=== PATIENT | female | born 1965 | race Caucasian/White ===

== ENCOUNTER 2021-01-20 07:32 | Outpatient (REF) | payer OTHER, SELFPAY ==
[2021-01-20 08:23] LABS: COVID-19 Test Negative (Negative)
== END 2021-01-20 07:33 | disposition home or self-care (01) ==
LOC: HO.LAB 07:32
PROVIDERS: Visit Provider Internal Medicine
DX: Z20.822 Contact with and (suspected) exposure to COVID-19 (principal)
CPT/HCPCS: 36415; 87635; C9803

== ENCOUNTER 2021-01-21 10:59 | Inpatient (IN) | payer OTHER, SELFPAY ==
[2021-01-21] VITALS (9 sets, daily range): BP systolic 138–174; BP diastolic 60–98; PULSE 78–96; RESP 16–24; TEMP 36.8–37.2; O2SAT 95–99; BMI 28.1
--- NOTE | ~2021-01-21 | CT_ITS ---
EXAMINATION: CT ANGIOGRAM OF THE HEAD CT ANGIOGRAM OF THE NECK CLINICAL INFORMATION: Vasculitis, abnormal MRI. COMPARISON: MRI scans of the brain and cervical spine 01/21/2021 and 01/22/2021. TECHNIQUE: Test bolus series followed by intravenous administration 65 mL of Omnipaque 350. Helical imaging was performed in the axial plane from the mediastinum to the skull vertex. A delayed postcontrast CT scan of the head was obtained. The degree of stenosis is based off NASCET criteria. The data was processed at the biotechnologist workstation for generation of MIP images. Three-dimensional volume rendered reformatted images were also generated at an offline 3-D workstation. This CT examination was performed using dose optimization techniques as appropriate, variously including the following: *Automated exposure control *Adjustment of mA and/or kV according to patient size (this includes techniques or standardized protocols for targeted exams where dose is matched to indication/reason for exam; i.e. extremities or head) *Use of iterative reconstruction technique DLP: 1 5-0 mGy-cm. FINDINGS: CT Head: There is no evidence of acute intracranial hemorrhage or territorial infarction. No abnormal mass-effect or midline shift is seen. Spear to white matter differentiation is well preserved. No extra-axial fluid collections are identified. There is no abnormal enhancement. The ventricles are normal in size. There are a few areas of low-attenuation in the periventricular and subcortical white matter consistent with chronic microvascular ischemic changes. An area of low-attenuation in the anterior left basal ganglia is consistent with a chronic lacunar infarct. There are no acute osseous findings. There is hyperostosis frontalis interna. There are degenerative changes of the right sternoclavicular joint. The mastoid air cells and visualized portions of the paranasal sinuses are well-aerated. CTA Neck: There is a classic configuration of the arch of the aorta. The great vessels of the neck are widely patent. The subclavian arteries appear normal bilaterally. The common carotid arteries have normal caliber. The carotid bifurcations bilaterally appear normal. The internal carotid arteries in the neck bilaterally have uniform and normal caliber. The origins of both vertebral arteries are well seen and appear normal. Both vertebral arteries are widely patent and demonstrate good opacification throughout their cervical course. The left vertebral artery is minimally dominant. Nonvascular: The visualized upper lung yañez are well-aerated. The thyroid gland is normal in size. There is no cervical lymphadenopathy. There is prevertebral soft tissue fullness, but this is better evaluated on the prior MRI scans. There are coarse calcifications along the anterior arch of C1; no acute fractures are demonstrated. CTA Head: In the anterior circulation, the distal internal carotid arteries within the neck appear normal. There are atheromatous calcifications of the cavernous internal carotid arteries, but the vessels are patent bilaterally. The middle and anterior cerebral arteries bilaterally demonstrate normal caliber with no evidence of focal stenosis, aneurysm or vascular malformation. There is normal arborization of the middle cerebral artery branches. The anterior communicating artery is normal. There is no evidence of vasculitis. In the posterior circulation, the left vertebral artery is dominant. The vertebral arteries intradurally have uniform caliber. The basilar artery appears normal. The posterior cerebral arteries have normal caliber. The venous sinuses opacify normally. CT/CT angio head neck IMPRESSION: CT head and neck: 1. There are no acute bleeds or infarcts. There is a low-attenuation in the white matter as described above. 2. There are no masses or areas of abnormal enhancement intracranially. 3. The prevertebral fluid is better demonstrated on prior imaging. CTA neck: 1. No flow limiting stenoses are demonstrated in the neck vascularity. There is no significant atheromatous disease. 2. Intracranially there are no focal stenoses, aneurysms or vascular malformations. There are mild atheromatous calcifications as described above. Vessel calibers appear normal in the anterior and posterior circulations.
--- NOTE | ~2021-01-21 | MR_ITS ---
EXAMINATION: MR CERVICAL SPINE WITHOUT CONTRAST CLINICAL INFORMATION: Assess for vasculitis or demyelination. COMPARISON: MR scan of the brain earlier 01/21/2021. TECHNIQUE: MRI of the cervical spine was obtained using routine sequences without contrast. FINDINGS: VERTEBRAL BODIES AND PARASPINAL SOFT TISSUES: There is a mild retrolisthesis of C5 on C6. There is narrowing of intervertebral disc height at C4-C5 and C5-C6. The vertebral bodies of normal height and contour and no fractures are demonstrated. Overall, marrow signal is homogenous. There is swelling of the prevertebral soft tissues extending from the clivus with edematous signal down to the level of C5-C6. No discrete fluid collection is demonstrated. There is some edematous signal in the bilateral longus coli muscles at the level of C1. The other paravertebral structures appear unremarkable. CERVICOMEDULLARY JUNCTION AND VISUALIZED POSTERIOR FOSSA: The craniocervical and posterior fossa structures are normal. Accounting for artifact, spinal cord signal appears normal. SPINAL LEVELS: C1-C2: There is normal alignment of the lateral masses of C1 and C2. There are small joint effusions at this level. There is no spinal cord compression or central stenosis. C2-C3: The facet joints appear normal bilaterally. Posterior disc contour is normal. There is no spinal cord compression or central stenosis. The neural foramina are patent bilaterally. C3-C4: The facet joints appear normal bilaterally. Posterior disc contour is normal. There is no spinal cord compression or central stenosis. The neural foramina are patent bilaterally. C4-C5: The facet joints appear normal bilaterally. Posterior disc contour is normal. There is no spinal cord compression or central stenosis. The neural foramina are patent bilaterally. C5-C6: There is a broad-based posterior disc protrusion which effaces CSF ventral spinal cord but there is no spinal cord compression or central stenosis. There are uncovertebral osteophytes and there is moderate left foraminal narrowing. C6-C7: There is a small posterior disc protrusion without mass effect on the spinal cord and there is no central stenosis. The neural foramina are patent bilaterally. C7-T1: The facet joints appear normal bilaterally. Posterior disc contour is normal. There is no spinal cord compression or central stenosis. The neural foramina are patent bilaterally. MR/MR cervical spine wo con IMPRESSION: 1. There is soft tissue fullness with edema in the prevertebral soft tissues extending from the clivus down to the level of C5. This could be consistent with inflammatory or infective changes, but no discrete fluid collections are demonstrated. 2. There is mild spondylosis at C5-C6 and C6-C7, without spinal cord compression or central stenosis. There is moderate left foraminal narrowing at C5-C6. Spinal cord signal appears normal. 3. This critical result was discussed with Dr. Ward by telephone on 01/21/2021 at 8:44 PM and it was ascertained that the content and urgency of the report was understood at the time of direct communication.
--- NOTE | ~2021-01-21 | MR_ITS ---
MR BRAIN WITHOUT AND WITH CONTRAST MR CERVICAL SPINE WITHOUT AND WITH CONTRAST CLINICAL INDICATION Assess for vasculitis versus meningitis. COMPARISON: Precontrast MRI scans of the brain and cervical spine 01/21/2021. TECHNIQUE: Postcontrast MRI scans of the brain and cervical spine were obtained following the intravenous administration of 8.5 mL of Gadavist. FINDINGS: MRI Brain: No mass effect or midline shift is seen. The ventricles are normal in size. There is an area of low signal in the left basal ganglia anteriorly consistent with a lacunar infarct. There is no abnormal parenchymal, leptomeningeal or pachymeningeal enhancement. MRI Cervical Spine: There is straightening of the cervical lordosis. Intervertebral disc heights are maintained. The vertebral bodies have normal height and contour and no fractures are demonstrated. Marrow signal appears uniform, and no abnormal osseous enhancement is demonstrated. The cervical spinal cord has normal signal and there is no abnormal intramedullary enhancement. No epidural fluid collections are demonstrated. There is soft tissue fullness with enhancement extending from the clivus down to the level of C5-C6 which demonstrates enhancement, consistent with an evolving phlegmon. There is a focal small peripherally enhancing area in the prevertebral soft tissues on the left at the level of the body of C2 which measures 0.6 x 0.8 x 0.9 cm in oblique AP, transverse and craniocaudal dimensions, which appears consistent with a small evolving abscess. There is enhancement of the longus colli muscles bilaterally. There appears to be enhancement of the previously demonstrated fluid/effusions at C1-C2 bilaterally. MR/MR cervical spine w con IMPRESSION: 1. There are no intracranial masses. There is no abnormal intracranial leptomeningeal, parenchymal pachymeningeal enhancement. There is no enhancement of the cervical spinal cord. There are no epidural fluid collections. 2. There is prevertebral soft tissue fullness extending from the clivus down to the level of C5-C6. This demonstrates diffuse enhancement, and is consistent with a phlegmon in the region. There is enhancement of the bilateral longus colli muscles, and there is a focal 0.9 cm likely abscess developing to the left of midline in the prevertebral soft tissues at the level of the body of C2. There is enhancement of the fluid within the C1-C2 joint spaces, which may be consistent with septic arthritis. 3. This critical result was discussed with Eryn Salguero by telephone on 01/22/2021 at 1:40 PM and it was ascertained that the content and urgency of the report was understood at the time of direct communication.
--- NOTE | ~2021-01-21 | CT_ITS ---
EXAMINATION: CT HEAD WITHOUT CONTRAST CLINICAL INFORMATION: Neurologic symptoms requiring lumbar puncture. Assess for occult mass lesion, hydrocephalus. COMPARISON: None TECHNIQUE: Contiguous axial imaging was performed from the skull base to vertex without intravenous administration of contrast. Additional 2-D coronal and sagittal reformatted images are generated on the CT workstation and uploaded to PACS. This CT examination was performed using dose optimization techniques as appropriate, variously including the following: *Automated exposure control *Adjustment of mA and/or kV according to patient size (this includes techniques or standardized protocols for targeted exams where dose is matched to indication/reason for exam; i.e. extremities or head) *Use of iterative reconstruction technique DLP: 684 mGy-cm FINDINGS: There is no intracranial hemorrhage, hematoma, or extra-axial fluid collection. The ventricles are normal in size. There is no hydrocephalus, edema, or mass effect. There is small left anterior basal ganglia lacunar infarct in region of anterior limb internal capsule. The jeronimo-white matter differentiation is otherwise symmetric. There is no visible acute territorial infarct or mass lesion. The calvarium appears intact. Mild hyperostosis frontalis. There is no pneumocephalus or orbital emphysema. The visualized sinuses and middle ears and mastoid air cells show no significant mucosal thickening. There are no air-fluid levels. CT/CT head/brain wo con IMPRESSION: 1. No hydrocephalus, edema, or mass effect. 2. Small left anterior basal ganglia lacunar infarct.
--- NOTE | ~2021-01-21 | MR_ITS ---
EXAMINATION: MRI OF THE BRAIN WITHOUT CONTRAST CLINICAL INFORMATION: Headache and neck stiffness. Assess for acute infarct. COMPARISON: CT scan of the head obtained earlier 01/21/2021. TECHNIQUE: MRI of the brain was obtained using routine sequences without contrast. FINDINGS: No diffusion abnormalities are identified to suggest an acute or subacute infarct. No mass effect or midline shift is seen. The ventricles are normal in size. There are multiple areas of increased T2 and FLAIR signal in the periventricular and subcortical white matter which are in a nonspecific distribution. They may be consistent with sequelae of migraine, vasculitis, or demyelination in the correct clinical setting. They may also be due to chronic microvascular ischemic changes. The study redemonstrates a lacunar infarct in the left anterior basal ganglia. No extra-axial fluid collections are seen. The brainstem and cerebellum are normal. No pathologic magnetic susceptibility artifact is identified on the gradient refocused acquisition. The craniovertebral junction, marrow signal, and midline structures are normal. There is hyperostosis frontalis interna. There are degenerative changes of the right temporomandibular joint. The major intracranial flow-voids at the level of the [place] are preserved. The dural venous sinus flow-voids are maintained. The mastoid air cells and paranasal sinuses are well-aerated. MR/MR head/brain wo con IMPRESSION: 1. There are no acute bleeds or infarcts. No masses are demonstrated. 2. There are multiple areas of increased T2 and FLAIR signal as described above which may be consistent with sequelae of vasculitis, migraine, or demyelination in the correct clinical setting. They may also be chronic microvascular ischemic changes. There is a chronic lacunar infarct in the left basal ganglia.
[2021-01-21 11:53] LABS: IDNOW Serial# 9DD0AD1C; Strep A Nucleic Acid Negative (Negative)
--- NOTE | 2021-01-21 12:22 | ED_ITS ---
HPI - General Adult General Chief complaint: General Medical Stated complaint: neck & head pain Time Seen by Provider: 01/21/21 11:53 Source: patient Mode of arrival: ambulatory History of Present Illness HPI narrative: 55-year-old female with no significant past medical history presenting to the ED complaining of a stiff neck, sore throat, and headache since Sunday. Also reports subjective fever and chills. Denies dyspnea, cough, CP/SOB, abdominal pain, nausea/vomiting, recent travel, sick/insect bites, rash, inability to swallow Onset (ago): day(s) Related Data Home Medications Medication Instructions Recorded Confirmed levothyroxine 125 mcg tablet 1 tab PO DAILY 01/21/21 methylphenidate HCl 54 mg 1 tab PO QAM 01/21/21 tablet,extended release 24 hr montelukast 10 mg tablet 1 tab PO DAILY 01/21/21 paroxetine HCl 10 mg tablet 1 tab PO DAILY 01/21/21 Allergies Allergy/AdvReac Type Severity Reaction Status Date / Time bee pollen [BEE STINGS] Allergy Unknown SOB, Verified 01/21/21 11:22 SWELLING Iodinated Contrast Media Allergy Unknown UNKNOWN Verified 01/21/21 11:22 [CONTRAST, IV] Review of Systems Review of Systems: Constitutional: +subj Fever, + Chills, No Night Sweats, No Fatigue, No Malaise ENT/Mouth: No Hearing loss, No Ear Pain, + Nasal Congestion, No Hoarseness, + sore throat, No Rhinorrhea, No Swallowing Difficulty Eyes: No Eye Pain, No Swelling, No Vision Changes Cardiovascular: No Chest Pain, No SOB Respiratory: No Cough, No Dyspnea Gastrointestinal: No Nausea, No Vomiting, No Constipation, No Abdominal pain Genitourinary: No Dysuria, No Urinary Frequency, No Hematuria, No Flank Pain Musculoskeletal: +neck pain, No Myalgias, No Joint Swelling Skin: No Skin Lesions, No rash Neuro: No Weakness, No Numbness, No Paresthesias, + Headache Yes all other systems are reviewed and are negative [facility] Past Medical History Attestation statement: The following information was validated with the patient. Social History Social History Alcohol intake: current Alcohol intake frequency: holidays/special occasions only Patient Tobacco Use Status: Never used Tobacco Use of substances other than those prescribed or required for medical reasons: No Advance Directives: No Advance Directives Information Provided: Yes Patient : No Physical Exam Vital Signs: Vital Signs: Last Vital Signs Temp 98.3 F 01/21/21 12:25 Pulse 78 01/21/21 16:02 Resp 18 01/21/21 19:35 BP 174/89 H 01/21/21 16:02 Pulse Ox 99 01/21/21 16:02 Body Mass Index 28.1 Const: General: cooperative, healthy appearing and no acute distress Orientation/consciousness: patient oriented x3 Limitations: no limitations HENMT: Head: Yes normal to inspection Ears: hearing grossly normal bilaterally, external ears normal and TM's normal bilaterally General nose exam: Normal external nose present Face and sinus: Yes normal facial exam Mouth: Normal oral and palatal mucosa present Throat: Yes posterior oropharynx normal, Yes tonsils normal, Yes uvula midline, No peritonsillar mass, No uvula laterally displaced and No uvular edema Eyes: General: appearance normal, both eyes and all related structures Pupils: Equal, round and reactive pupils present EOM: EOMs intact bilaterally Neck: Neck: Yes normal visual inspection, Yes trachea midline, Yes supple and No anterior neck swelling Resp: Effort & Inspection: normal respiratory effort Auscultation: clear to auscultation bilaterally, no rales, no rhonchi and no wheezes Cardio: Rate: regular rate Heart sounds: S1 normal heart sound present and S2 normal heart sound present GI: Inspection: Yes normal to inspection Palpation (GI): Soft to palpation, nontender, no guarding and not rigid Skin: Rashes: no rashes Wounds: no wounds Neuro: Other: + meningeal signs/stiff neck with limited ROM. No midline cervical spinous tenderness General: patient oriented x3 Cranial nerves: Yes Equal, round and reactive pupils present Gait exam (Neuro): Normal gait present Extrem: General: Yes normal to inspection Course Course Course Narrative: -1300--consent signed in in patient's chart for lumbar puncture -1500--no leukocytosis, labs otherwise unremarkable other than mildly elevated ALT (which appears chronic) CT head/brain wo con IMPRESSION: 1. No hydrocephalus, edema, or mass effect. 2. Small left anterior basal ganglia lacunar infarct. ? >> will obtain brain MRI to rule out acute infarct/other findings -1899--LP attempted by myself and Dr. Ward and unsuccessful, plan for admission, empiric antibiotics and to have IR perform LP in the morning 1924--MR head/brain wo con IMPRESSION: 1. There are no acute bleeds or infarcts. No masses are demonstrated. ? 2. There are multiple areas of increased T2 and FLAIR signal as described above which may be consistent with sequelae of vasculitis, migraine, or demyelination in the correct clinical setting. They may also be chronic microvascular ischemic changes. There is a chronic lacunar infarct in the left basal ganglia. >> case discussed with hospitalist, empirically covering patient for bacterial and viral meningitis. Cervical MRI added Medical Decision Making MDM Narrative Medical decision making narrative: 55-year-old female with no significant past medical history presenting to the ED complaining of a stiff neck, sore throat, and headache since Sunday. Also reports subjective fever and chills. On exam VSS, NAD/nontoxic, + meningeal signs with stiff neck appreciated on exam. TMs WNL, oropharynx WNL, no evidence of HOSPITAL NURSING ASSISTANT. Concern for viral meningitis. Plan: Labs, UA, blood cultures, lactic, lumbar puncture Lab Data Result diagrams: 01/21/21 12:36 01/21/21 12:36 Labs: Lab Results 01/21/21 01/21/21 01/21/21 Range/Units 11:39 11:39 12:36 WBC 7.6 (4.8-10.8) X10*3/uL RBC 4.89 (4.20-5.50) X10*6/uL Hgb 13.7 (12.0-16.0) g/dl Hct 42.1 (37-47) % MCV 86.1 (80-98) fL MCH 28.0 (27.0-33.0) pg MCHC 32.5 (31.0-35.0) g/dl RDW 13.9 (11.0-16.0) % Plt Count 245 (160-400) X10*3/uL MPV 9.1 L (9.4-12.3) fL Immature Gran % (Auto) 0.3 (0.0-0.4) % Neut % (Auto) 76.3 H (45-73) % Lymph % (Auto) 12.3 L (20-40) % Charles % (Auto) 9.0 (2-11) % Eos % (Auto) 1.7 (0-4) % Baso % (Auto) 0.4 (0-2) % Lymph # (Auto) 0.9 L (1.2-4.9) X10*3/uL Charles # (Auto) 0.7 (0.1-1.2) X10*3/uL Eos # (Auto) 0.1 (0.0-0.4) X10*3/uL Baso # (Auto) 0.0 (0.0-0.2) X10*3/uL Abs Immat Gran (auto) 0.02 (0.00-0.03) X10*3/uL Absolute Neuts (auto) 5.8 (2.0-8.3) X10*3/uL Absolute Nucleated RBC 0.000 (0.0-0.012) X10*3/uL Nucleated RBC % (auto) 0.0 (0.0-0.2) /100WBC Sodium (135-145) mmol/L Potassium (3.3-5.1) mmol/L Chloride (96-108) mmol/L Carbon Dioxide (22-29) mmol/L Anion Gap (12-20) BUN (9-16) mg/dL Creatinine (0.5-1.4) mg/dL Estim Creat Clear Calc Estimated GFR Random Glucose (60-115) mg/dL Lactic Acid (0.5-2.0) mmol/L Calcium (8.4-10.2) mg/dL Magnesium (1.6-2.6) mg/dL Total Bilirubin (0.0-1.0) mg/dL Direct Bilirubin (0.0-0.5) mg/dL AST (5-31) U/L ALT (0-31) U/L Alkaline Phosphatase (39-117) U/L Total Protein (6.5-8.0) g/dL Albumin (3.5-5.0) g/dL Urine Color Urine Appearance Urine pH (5.0-8.0) Ur Specific [place] (1.005-1.025) Urine Protein (NEG-TRACE) MG/DL Urine Glucose (UA) (NEG) MG/DL Urine Ketones (NEG) MG/DL Urine Blood (NEG) Urine Nitrite (NEG) Ur Leukocyte Esterase (NEG) Coronavirus (PCR) NEGATIVE (Negative) Influenza Type A (PCR) NEGATIVE (Negative) Influenza Type B (PCR) NEGATIVE (Negative) RSV RNA Qual (PCR) NEGATIVE (Negative) S. pyogenes GrpA PATRICA Negative (Negative) 01/21/21 01/21/21 01/21/21 Range/Units 12:36 12:36 12:57 WBC (4.8-10.8) X10*3/uL RBC (4.20-5.50) X10*6/uL Hgb (12.0-16.0) g/dl Hct (37-47) % MCV (80-98) fL MCH (27.0-33.0) pg MCHC (31.0-35.0) g/dl RDW (11.0-16.0) % Plt Count (160-400) X10*3/uL MPV (9.4-12.3) fL Immature Gran % (Auto) (0.0-0.4) % Neut % (Auto) (45-73) % Lymph % (Auto) (20-40) % Charles % (Auto) (2-11) % Eos % (Auto) (0-4) % Baso % (Auto) (0-2) % Lymph # (Auto) (1.2-4.9) X10*3/uL Charles # (Auto) (0.1-1.2) X10*3/uL Eos # (Auto) (0.0-0.4) X10*3/uL Baso # (Auto) (0.0-0.2) X10*3/uL Abs Immat Gran (auto) (0.00-0.03) X10*3/uL Absolute Neuts (auto) (2.0-8.3) X10*3/uL Absolute Nucleated RBC (0.0-0.012) X10*3/uL Nucleated RBC % (auto) (0.0-0.2) /100WBC Sodium 139 (135-145) mmol/L Potassium 4.0 (3.3-5.1) mmol/L Chloride 102 (96-108) mmol/L Carbon Dioxide 28 (22-29) mmol/L Anion Gap 13 (12-20) BUN 12 (9-16) mg/dL Creatinine 0.74 (0.5-1.4) mg/dL Estim Creat Clear Calc 96.6 Estimated GFR > 60 Random Glucose 92 (60-115) mg/dL Lactic Acid 0.7 (0.5-2.0) mmol/L Calcium 9.5 (8.4-10.2) mg/dL Magnesium 2.0 (1.6-2.6) mg/dL Total Bilirubin 0.9 (0.0-1.0) mg/dL Direct Bilirubin 0.4 (0.0-0.5) mg/dL AST 22 (5-31) U/L ALT 47 H (0-31) U/L Alkaline Phosphatase 87 (39-117) U/L Total Protein 7.7 (6.5-8.0) g/dL Albumin 4.2 (3.5-5.0) g/dL Urine Color YELLOW Urine Appearance CLEAR Urine pH 6.0 (5.0-8.0) Ur Specific [place] >= 1.030 H (1.005-1.025) Urine Protein TRACE (NEG-TRACE) MG/DL Urine Glucose (UA) NEG (NEG) MG/DL Urine Ketones 15 (NEG) MG/DL Urine Blood NEG (NEG) Urine Nitrite NEG (NEG) Ur Leukocyte Esterase NEG (NEG) Coronavirus (PCR) (Negative) Influenza Type A (PCR) (Negative) Influenza Type B (PCR) (Negative) RSV RNA Qual (PCR) (Negative) S. pyogenes GrpA PATRICA (Negative) Discharge Plan Discharge Clinical Impression: Suspected infectious meningitis Patient Disposition: Admitted As Inpatient
[2021-01-21 12:41] LABS: Influenza A PCR NEGATIVE (Negative); Influenza B PCR NEGATIVE (Negative); Resp Syncy Virus RNA Qual PCR NEGATIVE (Negative); SARS COV2 PCR INHOUSE NEGATIVE (Negative)
[2021-01-21 12:44] LABS: MANUAL DIFF FLAG NO
[2021-01-21 12:48] LABS: Basophils Percent Auto 0.4 % (0-2); Eosinophils Absolute Auto 0.1 X10*3/uL (0.0-0.4); Eosinophils Percent Auto 1.7 % (0-4); Hematocrit 42.1 % (37-47); Hemoglobin 13.7 g/dl (12.0-16.0); Imm Gran Abs Auto 0.02 X10*3/uL (0.00-0.03); Imm Gran Pct Auto 0.3 % (0.0-0.4); Lymphocytes Absolute Auto 0.9 X10*3/uL (1.2-4.9); Lymphocytes Percent Auto 12.3 % (20-40); Mean Corpuscular HGB Conc 32.5 g/dl (31.0-35.0); Mean Corpuscular Volume 86.1 fL (80-98); Mean Platelet Volume 9.1 fL (9.4-12.3); Monocytes Absolute Auto 0.7 X10*3/uL (0.1-1.2); Neutrophils Absolute Auto 5.8 X10*3/uL (2.0-8.3); Neutrophils Percent Auto 76.3 % (45-73); Platelet Count 245 X10*3/uL (160-400); Red Blood Count 4.89 X10*6/uL (4.20-5.50); Red Cell Distribution Width 13.9 % (11.0-16.0); White Blood Count 7.6 X10*3/uL (4.8-10.8)
[2021-01-21] MEDS: 0.9 % Sodium Chloride 1,000 ML 999 ML IVCONT (12:52)
[2021-01-21 13:07] LABS: Lactic Acid 0.7 mmol/L (0.5-2.0)
[2021-01-21 13:09] LABS: Appearance Urine CLEAR; Color Urine YELLOW; Glucose Urine UA NEG (NEG); Leukocyte Esterase Urine NEG (NEG); Nitrite Urine NEG (NEG); Specific Gravity - Urine >= 1.030 (1.005-1.025); Urine Blood NEG (NEG); Urine Ketones 15 MG/DL (NEG); Urine Protein TRACE MG/DL (NEG-TRACE)
[2021-01-21 15:01] LABS: Alanine Aminotransferase 47 U/L (0-31); Albumin Level 4.2 g/dL (3.5-5.0); Alkaline Phosphatase 87 U/L (39-117); Anion Gap 13 (12-20); Aspartate Amino Transferase 22 U/L (5-31); Bilirubin Direct 0.4 mg/dL (0.0-0.5); Bilirubin Total 0.9 mg/dL (0.0-1.0); Blood Urea Nitrogen 12 mg/dL (9-16); Calcium 9.5 mg/dL (8.4-10.2); Carbon Dioxide 28 mmol/L (22-29); Chloride 102 mmol/L (96-108); Creatinine Clr Calc Pharmacy 96.6; Estimated Glomerular Filt Rate > 60; Glucose Random 92 mg/dL (60-115); Sodium 139 mmol/L (135-145); Total Protein 7.7 g/dL (6.5-8.0)
[2021-01-21] MEDS: Morphine Sulfate 2 MG/ML CARTRIDGE IVPUSH (16:04)
[2021-01-21] MEDS: LORazepam 2 MG/ML VIAL 1 MG IVPUSH (18:37)
--- NOTE | 2021-01-21 19:30 | PC.NURSE ---
NATUROPATHIC PHYSICIAN and ED Provider attempted Lumbar Puncture. Unable to obtain sample. Plan to admit pt and begin treatment with antibiotics. Plan for IR to complete lumbar puncture tomorrow and obtain samples.
[2021-01-21] MEDS: LORazepam 1 MG TABLET PO (19:36)
[2021-01-21] MEDS: Ampicillin Sodium/Sulbactam Na 3 GM in 0.9 % Sodium Chloride 100 ML IV (20:35)
--- NOTE | 2021-01-21 20:37 | PC.NURSE ---
Pt returns from MRI, hospitalist at bedside for primary eval. Per hospitalist, to infuse ABX prior to antivirals. ABX infusing per MAR. Plan for second IV once hospitalist is finished with eval.
[2021-01-21] MEDS: cefEPime HCl 2 GM in 0.9 % Sodium Chloride 50 ML IV (20:45)
--- NOTE | 2021-01-21 20:50 | PC.NURSE ---
ABX hung late as pt was off unit in MRI.
[2021-01-21] MEDS: vancomycin HCL 1,000 MG in 0.9 % Sodium Chloride 250 ML 270 MG IV (21:42)
--- NOTE | 2021-01-21 22:19 | PM.IMHP ---
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 Patient reports that her symptoms started on Sunday night, she felt run down, called the school and was informed that 1 of her colleagues was COVID positive, had a COVID test on which came back negative, no improvement of her symptoms therefore decided to come to the hospital. Patient denies any numbness or tingling, reports that her neck pain does not radiate, she has difficulty with range of motion as a result of the pain, denies any trauma or recent injury, denies any change of her bedding or pillow. She reports no fever or chills, no recent travel, no recent significant outdoor activity, denies any chest pain, no shortness of breath, no abdominal pain nausea or vomiting, diarrhea constipation, no urinary symptoms and no lower extremity edema. Vitals reviewed show no abnormality Labs are generally unremarkable, has a CPK of 25, otherwise no significant finding on BMP/CBC Patient initially underwent head CT which showed no hydrocephalus, edema or mass effect, small left anterior basal ganglia lacunar infarcts, therefore patient underwent MRI of the brain which showed no acute bleeds or infarcts, no masses demonstrated. There is multiple areas of increased T2 and FLAIR signal as described above which may be consistent with sequelae of vasculitis, migraine or demyelination. I ordered a cervical spine MRI which showed soft tissue fullness with edema and the perivertebral soft tissue extending from the versus down to the level of C5. This could be consistent with inflammatory infective changes. No discrete collections demonstrated. Mild spondylosis at C5-C6 and C7 without spinal cord compression or central stenosis. Moderate left foraminal no ruling. LP was attempted in the ED with no success. Patient was preemptively treated for bacterial/viral meningitis received antibiotics as well as antiviral acyclovir in the ED. I discussed case with Neurology and patient will be admitted for further evaluation Review of Systems Review of Systems: Yes all other systems are reviewed and are negative [facility] Medical History (Updated 01/22/21 @ 06:44 by Karla Toscano MD) ADD (attention deficit disorder) Allergy Asthma Hypothyroidism Social History Household Members: None Housing: Apartment Do you presently have visiting nurse or other home services: No Alcohol intake: current Alcohol intake frequency: holidays/special occasions only Patient Tobacco Use Status: Never used Tobacco Smoked in Last 30 Days: No Second Hand Smoke Exposure: No Use of substances other than those prescribed or required for medical reasons: No Currently Displaying Signs/Symptoms of Drug Intoxication Withdrawal: No Any prior treatment program specific to substance use: No Have you been hit, kicked, punched, or otherwise hurt by someone within the past year? If so, by whom?: No Do you feel safe in your current relationship?: No Current Relationship Is there a partner from a previous relationship who is making you feel unsafe now?: No Are you made to feel afraid or neglected: No Advance Directives: No Advance Directives Information Provided: Yes Advance Directives on File: Yes Advance Directives Date on File: 01/22/21 Do you have thoughts of harming others: None Do you have a plan to hurt others: No Plan Recently lost weight without trying: Unsure Eating poorly because of decreased appetite: No Nutrition Risks: No Nutritional Risk Patient : No : No Poor oral hygiene: No Meds Allergies Allergy/AdvReac Type Severity Reaction Status Date / Time bee pollen [BEE STINGS] Allergy Unknown SOB, Verified 01/21/21 11:22 SWELLING Iodinated Contrast Media Allergy Unknown UNKNOWN Verified 01/21/21 11:22 [CONTRAST, IV] Home Medications Medication Instructions Recorded Confirmed Last Taken Type aspirin 81 mg tablet 81 mg PO DAILY 01/21/21 01/21/21 Unknown History levothyroxine 125 mcg tablet 1 tab PO DAILY 01/21/21 01/21/21 Unknown History methylphenidate HCl 54 mg 1 tab PO QAM 01/21/21 01/21/21 Unknown History tablet,extended release 24 hr montelukast 10 mg tablet 1 tab PO DAILY 01/21/21 01/21/21 Unknown History paroxetine HCl 10 mg tablet 1 tab PO DAILY 01/21/21 01/21/21 Unknown History Physical Exam Vital Signs and Narrative: Vital Signs: Last Vital Signs Temp 98.3 F 01/21/21 12:25 Pulse 83 01/21/21 22:16 Resp 20 01/21/21 22:16 BP 157/83 H 01/21/21 20:48 Pulse Ox 95 01/21/21 22:16 Body Mass Index 28.1 Const: General: cooperative and no acute distress Orientation/consciousness: patient oriented x3 HENMT: Other: Neck stiffness on neck flexion Limited range of motion due to pain Eyes: General: appearance normal, both eyes and all related structures Pupils: Equal, round and reactive pupils present Resp: Effort & Inspection: normal respiratory effort Auscultation: clear to auscultation bilaterally Cardio: Rate: regular rate Rhythm: regular rhythm GI: Palpation (GI): Soft to palpation Auscultation: normal bowel sounds Skin: General skin exam: no rashes or lesions noted Neuro: General: patient oriented x3 Cranial nerves: Yes Equal, round and reactive pupils present Cognition (Neuro): normal cognition Extrem: General: Yes normal to inspection and Yes no pedal edema Results Labs CBC and Chem 7: 01/21/21 12:36 01/21/21 12:36 Labs: Laboratory Results - last 24 hr 01/21/21 01/21/21 01/21/21 11:39 11:39 12:36 MCV 86.1 MCH 28.0 MCHC 32.5 RDW 13.9 Plt Count 245 MPV 9.1 L Immature Gran % (Auto) 0.3 Neut % (Auto) 76.3 H Lymph % (Auto) 12.3 L [place] % (Auto) 9.0 Eos % (Auto) 1.7 Baso % (Auto) 0.4 Lymph # (Auto) 0.9 L [place] # (Auto) 0.7 Eos # (Auto) 0.1 Baso # (Auto) 0.0 Abs Immat Gran (auto) 0.02 Absolute Neuts (auto) 5.8 Absolute Nucleated RBC 0.000 Nucleated RBC % (auto) 0.0 Anion Gap Estim Creat Clear Calc Estimated GFR Random Glucose Lactic Acid Calcium Magnesium Total Bilirubin Direct Bilirubin AST ALT Alkaline Phosphatase Total Protein Albumin Urine Color Urine Appearance Urine pH Ur Specific [place] Urine Protein Urine Glucose (UA) Urine Ketones Urine Blood Urine Nitrite Ur Leukocyte Esterase Coronavirus (PCR) NEGATIVE Influenza Type A (PCR) NEGATIVE Influenza Type B (PCR) NEGATIVE RSV RNA Qual (PCR) NEGATIVE S. pyogenes GrpA PATRICA Negative 01/21/21 01/21/21 01/21/21 12:36 12:36 12:57 MCV MCH MCHC RDW Plt Count MPV Immature Gran % (Auto) Neut % (Auto) Lymph % (Auto) [place] % (Auto) Eos % (Auto) Baso % (Auto) Lymph # (Auto) [place] # (Auto) Eos # (Auto) Baso # (Auto) Abs Immat Gran (auto) Absolute Neuts (auto) Absolute Nucleated RBC Nucleated RBC % (auto) Anion Gap 13 Estim Creat Clear Calc 96.6 Estimated GFR > 60 Random Glucose 92 Lactic Acid 0.7 Calcium 9.5 Magnesium 2.0 Total Bilirubin 0.9 Direct Bilirubin 0.4 AST 22 ALT 47 H Alkaline Phosphatase 87 Total Protein 7.7 Albumin 4.2 Urine Color YELLOW Urine Appearance CLEAR Urine pH 6.0 Ur Specific [place] >= 1.030 H Urine Protein TRACE Urine Glucose (UA) NEG Urine Ketones 15 Urine Blood NEG Urine Nitrite NEG Ur Leukocyte Esterase NEG Coronavirus (PCR) Influenza Type A (PCR) Influenza Type B (PCR) RSV RNA Qual (PCR) S. pyogenes GrpA PATRICA Imaging Radiologist's Impressions: Impressions Head CT 01/21/21 14:04 IMPRESSION: 1. No hydrocephalus, edema, or mass effect. 2. Small left anterior basal ganglia lacunar infarct. Brain MRI 01/21/21 16:24 IMPRESSION: 1. There are no acute bleeds or infarcts. No masses are demonstrated. 2. There are multiple areas of increased T2 and FLAIR signal as described above which may be consistent with sequelae of vasculitis, migraine, or demyelination in the correct clinical setting. They may also be chronic microvascular ischemic changes. There is a chronic lacunar infarct in the left basal ganglia. Cervical Spine MRI 01/21/21 19:23 IMPRESSION: 1. There is soft tissue fullness with edema in the prevertebral soft tissues extending from the clivus down to the level of C5. This could be consistent with inflammatory or infective changes, but no discrete fluid collections are demonstrated. 2. There is mild spondylosis at C5-C6 and C6-C7, without spinal cord compression or central stenosis. There is moderate left foraminal narrowing at C5-C6. Spinal cord signal appears normal. 3. This critical result was discussed with Dr. Ward by telephone on 01/21/2021 at 8:44 PM and it was ascertained that the content and urgency of the report was understood at the time of direct communication. Assessment and Plan (1) Suspected infectious meningitis: Status: Acute (2) Neck stiffness: Status: Acute (3) Vasculitis: Status: Acute 55-year-old female who presents to the hospital with neck stiffness is admitted for evaluation of further abnormality seen on MRI # neck stiffness - who vasculitis versus meningitis versus other etiology - neurology consult - recommended workup for vasculitis as well as further CT angiogram, and head and neck MRI with contrast which are order - patient prophylactically treated with IV antibiotic- will continue - afebrile, no leukocytosis - LP was attempted in the ED but was not successful - LP to be done after imaging - patient allergic to CT contrast, started on IV contrast premedication with 50 mg of prednisone to be given at 1:00 p.m., 7 hours, and 1 hour prior to contrast media injection plus Benadryl 50 mg 1 hour before contrast media injection. She received her 1st dose of 50 mg prednisone # hypothyroidism - continue levothyroxine DVT prophylaxis SCDs for potential of LP Quality Stroke Does the patient have a stroke diagnosis?: No VTE Prior VTE?: No VTE Risk Level:: Medical - moderate - high VTE Device Contraindication: N/A - Device Ordered VTE Drug Contraindication: Treatment Not Indicated
--- NOTE | 2021-01-21 23:36 | PC.NURSE ---
[place] [facility] [place].
[2021-01-21] MEDS: Acetaminophen 325 MG TABLET 650 MG PO (23:52)
[2021-01-21] MEDS: oxyCODONE HCl Immed Release 5 MG TABLET PO (23:52)
--- NOTE | 2021-01-21 23:54 | PC.NURSE ---
Pt ambulating to the bathroom with a steady gait. Pt medicated for 9/10 pain per request. VSS. Pt aware of plan to be transport upstairs when able.
[2021-01-22] VITALS: BP 117/70; PULSE 73; RESP 18; TEMP 36.6; O2SAT 97
--- NOTE | 2021-01-22 00:09 | PC.NURSE ---
Report given to ROCK Parish. technical advisor to transport pt to floor.
[2021-01-22] MEDS: predniSONE 10 MG TABLET 50 MG PO ×3 (01:34→13:38)
[2021-01-22 03:53] VITALS: BMI 28.4
[2021-01-22 04:00] VITALS: BP 123/70; PULSE 70; RESP 18; TEMP 36.5; O2SAT 96
[2021-01-22] MEDS: cefEPime HCl 1 GM in 0.9 % Sodium Chloride 50 ML IV ×2 (05:43→12:25)
[2021-01-22 07:09] LABS: Basophils Percent Auto 0.4 % (0-2); Hemoglobin 12.7 g/dl (12.0-16.0); Imm Gran Abs Auto 0.02 X10*3/uL (0.00-0.03); Imm Gran Pct Auto 0.2 % (0.0-0.4); Lymphocytes Absolute Auto 0.5 X10*3/uL (1.2-4.9); Lymphocytes Percent Auto 6.5 % (20-40); MANUAL DIFF FLAG NO; Mean Corpuscular HGB Conc 32.6 g/dl (31.0-35.0); Mean Corpuscular Hemoglobin 28.1 pg (27.0-33.0); Mean Corpuscular Volume 86.3 fL (80-98); Mean Platelet Volume 9.5 fL (9.4-12.3); Monocytes Absolute Auto 0.3 X10*3/uL (0.1-1.2); Neutrophils Absolute Auto 7.4 X10*3/uL (2.0-8.3); Neutrophils Percent Auto 89.9 % (45-73); Platelet Count 236 X10*3/uL (160-400); Red Blood Count 4.52 X10*6/uL (4.20-5.50); Red Cell Distribution Width 13.9 % (11.0-16.0); White Blood Count 8.3 X10*3/uL (4.8-10.8)
[2021-01-22 07:28] LABS: Anion Gap 12 (12-20); Blood Urea Nitrogen 13 mg/dL (9-16); Carbon Dioxide 25 mmol/L (22-29); Chloride 105 mmol/L (96-108); Creatinine Clr Calc Pharmacy 110.4; Estimated Glomerular Filt Rate > 60; Glucose Random 115 mg/dL (60-115); Potassium 4.2 mmol/L (3.3-5.1); Sodium 138 mmol/L (135-145)
[2021-01-22 07:52] VITALS: BP 125/72; PULSE 75; RESP 18; TEMP 36.5; O2SAT 98
[2021-01-22] MEDS: PARoxetine HCL 10 MG TABLET PO (09:15)
[2021-01-22] MEDS: 0.9 % Sodium Chloride Flush 3 ML SYRINGE IVFLUSH ×2 (09:15→16:47)
[2021-01-22] MEDS: vancomycin HCL 1,000 MG in 0.9 % Sodium Chloride 250 ML 270 MG IV ×2 (09:15→22:15)
[2021-01-22] MEDS: Montelukast Sodium 10 MG TABLET PO (09:15)
[2021-01-22] MEDS: Levothyroxine Sodium 125 MCG TABLET PO (09:15)
--- NOTE | 2021-01-22 11:04 | PM.NEUROCN ---
History of Present Illness Data of Consult Service Date: 01/22/21 Primary Care Provider: Toney Payne MD [facility] Reason for consult: Abnormal brain and neck MRI 55 years old woman with past medical history of allergies and ADD but no other significant medical conditions such as hypertension or diabetes or cancer, usually in reasonably good state of health developed neck stiffness and pain and headache few days ago. It worsened to the point that she came to emergency room. There was no recent trauma or rash. She had MRI of brain and cervical spine done, which revealed significant abnormalities and she was admitted. Initially her temperature was 99 degrees F. [facility] Past Medical History Medical History (Updated 01/22/21 @ 06:44 by Karla Toscano MD) ADD (attention deficit disorder) Allergy Asthma Hypothyroidism Social History Social History Household Members: None Housing: Apartment Do you presently have visiting nurse or other home services: No Alcohol intake: current Alcohol intake frequency: holidays/special occasions only Patient Tobacco Use Status: Never used Tobacco Smoked in Last 30 Days: No Second Hand Smoke Exposure: No Use of substances other than those prescribed or required for medical reasons: No Currently Displaying Signs/Symptoms of Drug Intoxication Withdrawal: No Any prior treatment program specific to substance use: No Have you been hit, kicked, punched, or otherwise hurt by someone within the past year? If so, by whom?: No Do you feel safe in your current relationship?: No Current Relationship Is there a partner from a previous relationship who is making you feel unsafe now?: No Are you made to feel afraid or neglected: No Advance Directives: No Advance Directives Information Provided: Yes Advance Directives on File: Yes Advance Directives Date on File: 01/22/21 Do you have thoughts of harming others: None Do you have a plan to hurt others: No Plan Recently lost weight without trying: Unsure Eating poorly because of decreased appetite: No Nutrition Risks: No Nutritional Risk Patient : No : No Poor oral hygiene: No Meds Allergies Allergy/AdvReac Type Severity Reaction Status Date / Time bee pollen [BEE STINGS] Allergy Unknown SOB, Verified 01/21/21 11:22 SWELLING Iodinated Contrast Media Allergy Unknown UNKNOWN Verified 01/21/21 11:22 [CONTRAST, IV] Active Medications: Current Medications Generic Name Dose Route Start Last Admin Trade Name Pam PRN Reason Stop Dose Admin Acetaminophen 650 mg 01/21/21 22:34 01/21/21 23:52 Acetaminophen 325 Mg Tablet PO 650 mg Q6H PRN Administration Pain, Mild (Pain Scale 1-3) Diphenhydramine HCl 50 mg 01/22/21 13:30 Diphenhydramine Hcl 25 Mg Tablet PO 01/22/21 13:31 ONCE ONE Cefepime HCl 1 gm/ Sodium 50 mls @ 100 mls/hr 01/22/21 04:00 01/22/21 06:30 Chloride IV Infused Q8H ALEXANDER Infusion Vancomycin HCl 1,000 mg/ 270 mls @ 270 mls/hr 01/22/21 10:00 01/22/21 10:17 Sodium Chloride IV Infused Q12H ALEXANDER Infusion Levothyroxine Sodium 125 mcg 01/22/21 09:00 01/22/21 09:15 Levothyroxine Sodium 125 Mcg Tablet PO 125 mcg DAILY ALEXANDER Administration Montelukast Sodium 10 mg 01/22/21 09:00 01/22/21 09:15 Montelukast Sodium 10 Mg Tablet PO 10 mg DAILY ALEXANDER Administration Non-Formulary Medication 1 tab 01/22/21 09:00 Methylphenidate Hcl PO DAILY ALEXANDER Ondansetron HCl 4 mg 01/21/21 22:34 Ondansetron Hcl 4 Mg/2 Ml Vial IVPUSH Q8H PRN Nausea and Vomiting Oxycodone HCl 5 mg 01/21/21 22:34 01/21/21 23:52 Oxycodone Hcl Immed Release 5 Mg Tablet PO 5 mg Q6H PRN Administration Pain, Severe (Pain Scale 7-10) Paroxetine HCl 10 mg 01/22/21 09:00 01/22/21 09:15 Paroxetine Hcl 10 Mg Tablet PO 10 mg DAILY ALEXANDER Administration Pharmacy Consult 1 each 01/21/21 22:34 Consult Rx Vancomycin Dosing MISCELLANE DAILY PRN Consult order Prednisone 50 mg 01/22/21 10:49 Prednisone 10 Mg Tablet PO 01/22/21 10:50 ONCE ONE Prednisone 50 mg 01/22/21 13:30 Prednisone 10 Mg Tablet PO 01/22/21 13:31 ONCE ONE Sodium Chloride 3 ml 01/22/21 00:00 01/22/21 09:15 0.9 % Sodium Chloride Flush 3 Ml Syringe IVFLUSH 3 ml QSHIFT [facility] Administration Home Medications Medication Instructions Recorded Confirmed Last Taken Type aspirin 81 mg tablet 81 mg PO DAILY 01/21/21 01/21/21 Unknown History levothyroxine 125 mcg tablet 1 tab PO DAILY 01/21/21 01/21/21 Unknown History methylphenidate HCl 54 mg 1 tab PO QAM 01/21/21 01/21/21 Unknown History tablet,extended release 24 hr montelukast 10 mg tablet 1 tab PO DAILY 01/21/21 01/21/21 Unknown History paroxetine HCl 10 mg tablet 1 tab PO DAILY 01/21/21 01/21/21 Unknown History Physical Exam Vital Signs: Vital Signs: Last Vital Signs Temp 97.7 F 01/22/21 07:52 Pulse 75 01/22/21 07:52 Resp 18 01/22/21 07:52 BP 125/72 01/22/21 07:52 Pulse Ox 98 01/22/21 07:52 Body Mass Index 28.4 Neuro: Other: She was alert and awake with normal spontaneity of speech fluency comprehension and affect. Neck was moderately stiff. Pupils were round reactive to light. Extraocular muscles were intact. Visual yañez are full. Face was symmetrical. [id number] testing was normal. Deep tendon reflexes were 2+ with flexor plantars. She was not in any significant distress. Speech was normal. Results Labs CBC & Chem 7: 01/22/21 05:58 01/22/21 05:58 Labs: Short CBC 01/21/21 01/22/21 Range/Units 12:36 05:58 WBC 7.6 8.3 (4.8-10.8) X10*3/uL Hgb 13.7 12.7 (12.0-16.0) g/dl Hct 42.1 39.0 (37-47) % Plt Count 245 236 (160-400) X10*3/uL BMP 01/21/21 01/22/21 12:36 05:58 Sodium 139 138 Potassium 4.0 4.2 Chloride 102 105 Carbon Dioxide 28 25 BUN 12 13 Creatinine 0.74 0.65 Calcium 9.5 9.0 Cardiac Enzymes 01/21/21 Range/Units 22:09 Total Creatine Kinase 25 L (26-140) U/L Liver Function 01/21/21 Range/Units 12:36 Total Bilirubin 0.9 (0.0-1.0) mg/dL Direct Bilirubin 0.4 (0.0-0.5) mg/dL AST 22 (5-31) U/L ALT 47 H (0-31) U/L Alkaline Phosphatase 87 (39-117) U/L Albumin 4.2 (3.5-5.0) g/dL Urine 01/21/21 Range/Units 12:57 Urine Color YELLOW Urine Appearance CLEAR Urine pH 6.0 (5.0-8.0) Ur Specific [place] >= 1.030 H (1.005-1.025) Urine Protein TRACE (NEG-TRACE) MG/DL Urine Glucose (UA) NEG (NEG) MG/DL MRI of brain revealed multiple bilateral lesion suggestive of either multiple ischemic infarcts or atypical demyelination. Cervical spine MRI, other than degenerative and spondylitic changes, reveal prevertebral soft tissue swelling. Assessment and Plan (1) Suspected infectious meningitis: Status: Acute 55 years old woman who came to hospital with new onset of headache and neck pain and stiffness. Examination revealed [id number] meningeal signs and neck but otherwise no focal neurological abnormality. He was not in any significant distress. Her brain MRI was quite abnormal revealing multiple bilateral lesions and similarly cervical spine MRI revealed atypical soft tissue swelling and prevertebral area. Etiology of all this was unclear at this time. Potential etiologies included atypical infection such as Lyme, sarcoidosis, or vasculitis. Recommendations are as follows: 1. MRI of brain with contrast 2. MRI of cervical spine with contrast 3. Lumbar puncture to analyze or spinal fluid for CSF glucose, protein, cells, diff, g stain and culture, oligoclonal bands, and IgG index. I would also recommend sending CSF for meningoencephalitis panel. 4. Echocardiogram to rule out any lesion that could result in cerebral embolism 5. CTA of brain to rule out any sign of vasculitis 6. Sed rate, antinuclear antibody titer, cardiolipin titer and syphilis test Procedures Date of Service Date of Service: 01/22/21
[2021-01-22 12:00] VITALS: BP 145/60; PULSE 79; RESP 19; TEMP 36.5; O2SAT 98
[2021-01-22] MEDS: diphenhydrAMINE HCL 25 MG TABLET 50 MG PO (13:38)
--- NOTE | 2021-01-22 14:41 | P.PNIM_ITS ---
Subjective Subjective Date of Service: 01/22/21 Interval History: the patient was seen and evaluated this morning Laying in bed, feels little better but still have significant decreased range of motion MRI concerning for possible abscess Denies any fever, chills or shortness of breath No reported other overnight events. Systemic review: No fever, chills but has weakness and sore throat Difficulty with range of motion at the neck No chest pain, palpitation No shortness of breath or coughing No abdominal pain, nausea or vomiting No urinary symptoms No any rash or wounds Physical Exam Vital Signs: Vital Signs: Last Vital Signs Temp 97.7 F 01/22/21 12:00 Pulse 79 01/22/21 12:00 Resp 19 01/22/21 12:00 BP 145/60 H 01/22/21 12:00 Pulse Ox 98 01/22/21 12:00 Body Mass Index 28.4 Const: Other: Constitutional : Alert, oriented, not in distress Neck : Normal inspection, tenderness over the vertebral, numb, decreased range of motion significantly Cardiovascular : RRR, S1 S2, no lower extremity edema Respiratory : Good bilateral air entry, no crackles, wheezes or rhonchi Gastrointestinal: soft, lax, Normal bowel sounds, Non tender Skin : Warm, Dry Neurological : Alert & oriented x3, No focal deficit Objective Data Current Medications Generic Name Dose Route Start Last Admin Trade Name Crowq PRN Reason Stop Dose Admin Acetaminophen 650 mg 01/21/21 22:34 01/21/21 23:52 Acetaminophen 325 Mg Tablet PO 650 mg Q6H PRN Administration Pain, Mild (Pain Scale 1-3) Cefepime HCl 1 gm/ Sodium 50 mls @ 100 mls/hr 01/22/21 04:00 01/22/21 12:57 Chloride IV Infused Q8H [facility] Infusion Vancomycin HCl 1,000 mg/ 270 mls @ 270 mls/hr 01/22/21 10:00 01/22/21 10:17 Sodium Chloride IV Infused Q12H [facility] Infusion Levothyroxine Sodium 125 mcg 01/22/21 09:00 01/22/21 09:15 Levothyroxine Sodium 125 Mcg Tablet PO 125 mcg DAILY [facility] Administration Montelukast Sodium 10 mg 01/22/21 09:00 01/22/21 09:15 Montelukast Sodium 10 Mg Tablet PO 10 mg DAILY [facility] Administration Non-Formulary Medication 1 tab 01/22/21 09:00 Methylphenidate Hcl PO DAILY [facility] Ondansetron HCl 4 mg 01/21/21 22:34 Ondansetron Hcl 4 Mg/2 Ml Vial IVPUSH Q8H PRN Nausea and Vomiting Oxycodone HCl 5 mg 01/21/21 22:34 01/21/21 23:52 Oxycodone Hcl Immed Release 5 Mg Tablet PO 5 mg Q6H PRN Administration Pain, Severe (Pain Scale 7-10) Paroxetine HCl 10 mg 01/22/21 09:00 01/22/21 09:15 Paroxetine Hcl 10 Mg Tablet PO 10 mg DAILY [facility] Administration Pharmacy Consult 1 each 01/21/21 22:34 Consult Rx Vancomycin Dosing MISCELLANE DAILY PRN Consult order Sodium Chloride 3 ml 01/22/21 00:00 01/22/21 09:15 0.9 % Sodium Chloride Flush 3 Ml Syringe IVFLUSH 3 ml QSHIFT [facility] Administration Labs CBC & Chem 7: 01/22/21 05:58 01/22/21 05:58 Labs: Laboratory Results - last 24 hr 01/21/21 01/21/21 01/22/21 12:36 22:09 05:58 MCV 86.3 MCH 28.1 MCHC 32.6 RDW 13.9 Plt Count 236 MPV 9.5 Immature Gran % (Auto) 0.2 Neut % (Auto) 89.9 H Lymph % (Auto) 6.5 L Woodson % (Auto) 3.0 Eos % (Auto) 0.0 Baso % (Auto) 0.4 Lymph # (Auto) 0.5 L Woodson # (Auto) 0.3 Eos # (Auto) 0.0 Baso # (Auto) 0.0 Abs Immat Gran (auto) 0.02 Absolute Neuts (auto) 7.4 Absolute Nucleated RBC 0.000 Nucleated RBC % (auto) 0.0 Anion Gap 13 Estim Creat Clear Calc 96.6 Estimated GFR > 60 Random Glucose 92 Calcium 9.5 Magnesium 2.0 Total Bilirubin 0.9 Direct Bilirubin 0.4 AST 22 ALT 47 H Alkaline Phosphatase 87 Total Creatine Kinase 25 L Total Protein 7.7 Albumin 4.2 01/22/21 05:58 MCV MCH MCHC RDW Plt Count MPV Immature Gran % (Auto) Neut % (Auto) Lymph % (Auto) Woodson % (Auto) Eos % (Auto) Baso % (Auto) Lymph # (Auto) Woodson # (Auto) Eos # (Auto) Baso # (Auto) Abs Immat Gran (auto) Absolute Neuts (auto) Absolute Nucleated RBC Nucleated RBC % (auto) Anion Gap 12 Estim Creat Clear Calc 110.4 Estimated GFR > 60 Random Glucose 115 Calcium 9.0 Magnesium Total Bilirubin Direct Bilirubin AST ALT Alkaline Phosphatase Total Creatine Kinase Total Protein Albumin Assessment and Plan (1) Soft tissue abscess: Status: Acute (2) Neck stiffness: Status: Acute Assessment and Plan: 55-year-old female who presents to the hospital with neck stiffness is admitted for evaluation of further abnormality seen on MRI # neck stiffness Seems to be secondary to an abscess perivertebral area Review MRI report with contrast, no intracranial findings Pending CTA Continue antibiotic of vancomycin, at [facility] was attempted in the ED but was not successful Neurology input appreciated To get ID evaluation Will try to transfer the patient to hospital were neurosurgery and ENT available # allergic to CT contrast started on IV contrast premedication with 50 mg of prednisone to be given at 1:00 p.m., 7 hours, and 1 hour prior to contrast Benadryl 50 mg 1 hour before contrast media injection # hypothyroidism continue levothyroxine DVT prophylaxis SCDs Quality Stroke Does the patient have a stroke diagnosis?: No VTE Prior VTE?: No VTE Risk Level:: Medical - moderate - high VTE Device Contraindication: N/A - Device Ordered VTE Drug Contraindication: Treatment Not Indicated
[2021-01-22] MEDS: iohexoL 350 MG/ML 100 ML INFUS..BTL IV (15:30)
[2021-01-22 15:45] VITALS: BP 152/89; PULSE 76; RESP 15; TEMP 36.8; O2SAT 92
--- NOTE | 2021-01-22 15:56 | PM.DS ---
DS: Providers Provider Date of Service: 01/24/21 Date of admission: 01/21/21 22:19 Primary care physician: Toney Payne MD Consults: 01/22/21 13:56 Consult to Infectious Diseases Routine Consulting Provider: Delisa Stratton Reason for consultation: Gabbie-vertibular abcsess on MR, for your kind eval. DS: Diagnosis Discharge Diagnosis (1) Soft tissue abscess: Status: Acute (2) Neck stiffness: Status: Acute (3) Abscess of neck: Status: Acute DS: Medications Discharge Medications Home Medications: Home Medications Medication Instructions Recorded Confirmed aspirin 81 mg tablet 81 mg PO DAILY 01/21/21 01/21/21 levothyroxine 125 mcg tablet 1 tab PO DAILY 01/21/21 01/21/21 methylphenidate HCl 54 mg 1 tab PO QAM 01/21/21 01/21/21 tablet,extended release 24 hr montelukast 10 mg tablet 1 tab PO DAILY 01/21/21 01/21/21 paroxetine HCl 10 mg tablet 1 tab PO DAILY 01/21/21 01/21/21 Previous Rx's Medication Instructions Recorded ceftriaxone 2 gram solution for 2 g IV Q12H 1 Days ea 01/22/21 injection metronidazole 500 mg/100 mL-sodium 500 mg IV Q12H 1 Days ml 01/22/21 chloride(iso) intravenous piggyback DS: Summary Hospital Course Hospital Course: Admission note HPI 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 Patient reports that her symptoms started on Sunday night, she felt run down, called the school and was informed that 1 of her colleagues was COVID positive, had a COVID test on which came back negative, no improvement of her symptoms therefore decided to come to the hospital.? Patient denies any numbness or tingling, reports that her neck pain does not radiate, she has difficulty with range of motion as a result of the pain, denies any trauma or recent injury, denies any change of her bedding or pillow. ?She reports no fever or chills, no recent travel, no recent significant outdoor activity, denies any chest pain, no shortness of breath, no abdominal pain nausea or vomiting, diarrhea constipation, no urinary symptoms and no lower extremity edema. Vitals reviewed show no abnormality Labs are generally unremarkable, has a CPK of 25, otherwise no significant finding on BMP/CBC Patient initially underwent head CT which showed no hydrocephalus, edema or mass effect, small left anterior basal ganglia lacunar infarcts, therefore patient underwent MRI of the brain which showed no acute bleeds or infarcts, no masses demonstrated.? There is multiple areas of increased T2 and FLAIR signal as described above which may be consistent with sequelae of vasculitis, migraine or demyelination.? I ordered a cervical spine MRI which showed soft tissue fullness with edema and the perivertebral soft tissue extending from the versus down to the level of C5.? This could be consistent with inflammatory infective changes.? No discrete collections demonstrated.? Mild spondylosis at C5-C6 and C7 without spinal cord compression or central stenosis.? Moderate left foraminal no ruling. LP was attempted in the ED with no success. Patient was preemptively treated for bacterial/viral meningitis received antibiotics as well as antiviral acyclovir in the ED. I discussed case with Neurology and patient will be admitted for further evaluation Hospital course A 55-year-old female who presents to the hospital with neck stiffness for 4 days [employer]UAL TRAIN[employer]. reported having URI symptoms associated with worsening neck pain starting Sunday. No reported fever or chills but worsening sore throat and difficulties opening the mouth wide. # Neck stiffness First impression concerning for inflammatory vs infectious etiology LP was attempted in the ED but was not successful MRI with contrast for head and neck showed to be secondary to an abscess in paravertebral area C3-C5 with Phlegmon & Small abscess formation extending possibly from sinuses, no intracranial findings though. CTA of the neck showing no stenosis or malformations. The patient treated with Ceftriaxone 2gm q12l in addition to Vancomycin dosed 1 gm q12hr after last vancomycin trough of 7.7 of per ID recommendations. Evaluated by neurology who recommended work up for vasculitis and meningitis (before the MRI w contrast was done) The patient fair improvement in her symptoms as she was able to tolerate diet and swallow with decreased level sore throat and she was able to open her mouth little bit wider this morning with diet advanced to regular. ID recommended drainage of the abscess. Concern over staph,strep or metastatic event from endocarditis. pending ECHO. Will try to transfer the patient to [facility] were neurosurgery and ENT available to continue antibiotics and for possible intervention if needed. # allergic to CT contrast started on IV contrast premedication with 50 mg of prednisone to be given at 1:00 p.m., 7 hours, and 1 hour prior to contrast Benadryl 50 mg 1 hour before contrast media injection. repeated BMP stable. no reported allergic reaction. Time Spent with Patient Time attestation: Total time spent providing and/or coordinating discharge services: Discharge coordination time: Greater than 30 minutes Quality: Stroke Does the patient have a stroke diagnosis?: No Physical Exam Vital Signs: Vital Signs: Last Vital Signs Temp 98.3 F 01/22/21 15:45 Pulse 76 01/22/21 15:45 Resp 15 01/22/21 15:45 BP 152/89 H 01/22/21 15:45 Pulse Ox 92 01/22/21 15:45 Body Mass Index 28.4 Const: Other: Constitutional : Alert, oriented, not in distress Neck : Normal inspection, tenderness over back of the neck, decreased range of motion significantly, decrease range Jaw opening, throat could not be visualised as restricted mouth opening but no erythema noticed overall. Cardiovascular : RRR, S1 S2, no lower extremity edema Respiratory : Good bilateral air entry, no crackles, wheezes or rhonchi Gastrointestinal: soft, lax, Normal bowel sounds, Non tender Skin : Warm, Dry Neurological : Alert & oriented x3, No focal deficit DS: Data Data Completed and Pending Labs on day of discharge: Laboratory Results - last 24 hr 01/21/21 01/22/21 01/22/21 22:09 05:58 05:58 WBC 8.3 RBC 4.52 Hgb 12.7 Hct 39.0 MCV 86.3 MCH 28.1 MCHC 32.6 RDW 13.9 Plt Count 236 MPV 9.5 Immature Gran % (Auto) 0.2 Neut % (Auto) 89.9 H Lymph % (Auto) 6.5 L Glynn % (Auto) 3.0 Eos % (Auto) 0.0 Baso % (Auto) 0.4 Lymph # (Auto) 0.5 L Glynn # (Auto) 0.3 Eos # (Auto) 0.0 Baso # (Auto) 0.0 Abs Immat Gran (auto) 0.02 Absolute Neuts (auto) 7.4 Absolute Nucleated RBC 0.000 Nucleated RBC % (auto) 0.0 Sodium 138 Potassium 4.2 Chloride 105 Carbon Dioxide 25 Anion Gap 12 BUN 13 Creatinine 0.65 Estim Creat Clear Calc 110.4 Estimated GFR > 60 Random Glucose 115 Calcium 9.0 Total Creatine Kinase 25 L Preliminary micro results at discharge 01/21/21 12:57 Blood Culture - Preliminary Blood - Venous No growth after 24 hours. 01/21/21 12:37 Blood Culture - Preliminary Blood - Venous No growth after [address] scan - chest: Radiologist's impression: ITS Impressions Head CT 01/21/21 14:04 IMPRESSION: 1. No hydrocephalus, edema, or mass effect. 2. Small left anterior basal ganglia lacunar infarct. Brain MRI 01/21/21 16:24 IMPRESSION: 1. There are no acute bleeds or infarcts. No masses are demonstrated. 2. There are multiple areas of increased T2 and FLAIR signal as described above which may be consistent with sequelae of vasculitis, migraine, or demyelination in the correct clinical setting. They may also be chronic microvascular ischemic changes. There is a chronic lacunar infarct in the left basal ganglia. Cervical Spine MRI 01/21/21 19:23 IMPRESSION: 1. There is soft tissue fullness with edema in the prevertebral soft tissues extending from the clivus down to the level of C5. This could be consistent with inflammatory or infective changes, but no discrete fluid collections are demonstrated. 2. There is mild spondylosis at C5-C6 and C6-C7, without spinal cord compression or central stenosis. There is moderate left foraminal narrowing at C5-C6. Spinal cord signal appears normal. 3. This critical result was discussed with Dr. Ward by telephone on 01/21/2021 at 8:44 PM and it was ascertained that the content and urgency of the report was understood at the time of direct communication. Brain MRI 01/22/21 11:23 IMPRESSION: 1. There are no intracranial masses. There is no abnormal intracranial leptomeningeal, parenchymal pachymeningeal enhancement. There is no enhancement of the cervical spinal cord. There are no epidural fluid collections. 2. There is prevertebral soft tissue fullness extending from the clivus down to the level of C5-C6. This demonstrates diffuse enhancement, and is consistent with a phlegmon in the region. There is enhancement of the bilateral longus colli muscles, and there is a focal 0.9 cm likely abscess developing to the left of midline in the prevertebral soft tissues at the level of the body of C2. There is enhancement of the fluid within the C1-C2 joint spaces, which may be consistent with septic arthritis. 3. This critical result was discussed with Eryn Salguero by telephone on 01/22/2021 at 1:40 PM and it was ascertained that the content and urgency of the report was understood at the time of direct communication. Cervical Spine MRI 01/22/21 11:50 IMPRESSION: 1. There are no intracranial masses. There is no abnormal intracranial leptomeningeal, parenchymal pachymeningeal enhancement. There is no enhancement of the cervical spinal cord. There are no epidural fluid collections. 2. There is prevertebral soft tissue fullness extending from the clivus down to the level of C5-C6. This demonstrates diffuse enhancement, and is consistent with a phlegmon in the region. There is enhancement of the bilateral longus colli muscles, and there is a focal 0.9 cm likely abscess developing to the left of midline in the prevertebral soft tissues at the level of the body of C2. There is enhancement of the fluid within the C1-C2 joint spaces, which may be consistent with septic arthritis. 3. This critical result was discussed with Eryn Salguero by telephone on 01/22/2021 at 1:40 PM and it was ascertained that the content and urgency of the report was understood at the time of direct communication. Head/Neck CTA 01/22/21 15:00 IMPRESSION: CT head and neck: 1. There are no acute bleeds or infarcts. There is a low-attenuation in the white matter as described above. 2. There are no masses or areas of abnormal enhancement intracranially. 3. The prevertebral fluid is better demonstrated on prior imaging. CTA neck: 1. No flow limiting stenoses are demonstrated in the neck vascularity. There is no significant atheromatous disease. 2. Intracranially there are no focal stenoses, aneurysms or vascular malformations. There are mild atheromatous calcifications as described above. Vessel calibers appear normal in the anterior and posterior circulations. Discharge Plan Discharge Patient Disposition: [facility] Discharge Diagnosis: Paravertebral Abscess Soft tissue infection Neck Stiffness Referrals: Toney Payne MD [Primary Care Provider] - 1 Week Discharge Medications: New metronidazole in NaCl (iso-os) 500 mg/100 mL Piggyback 500 mg IV Q12H 1 Days RF: 0 ceftriaxone 2 gram Recon Soln 2 g IV Q12H 1 Days RF: 0 Continued paroxetine HCl 10 mg tablet 1 tab PO DAILY RF: 0 methylphenidate HCl 54 mg tablet extended release 24hr 1 tab PO QAM RF: 0 levothyroxine 125 mcg tablet 1 tab PO DAILY RF: 0 montelukast 10 mg tablet 1 tab PO DAILY RF: 0 aspirin 81 mg Tablet 81 mg PO DAILY RF: 0 Discharge Orders: Discharge Order (Routine); Ordered 01/24/21 Ordered By: Eryn Salguero Diet: other and regular diet Activity on Discharge: As tolerated Stand Alone Forms: Patient Portal Discharge page Care Plan Goals: Read below Health Concerns: Read below Plan of Treatment: Evaluated for neck stiffness. MRIs and CT scans concerning for possible abscess in your neck. Treated with IV antibiotics with fair response. to be transferred to [facility] for further evaluation and treatment. Assessment: Continue antibiotics. to get ENT and Neurosurgery evaluation.
--- NOTE | 2021-01-22 16:18 | MHC.CM.PN ---
PT ON DROPLET PRECAUTIONS, CM CONTACTED HER REPORTED HCP/SISTER, GRIFFIN ([phone]) WHO REPORTS THE PT LIVES ALONE HOWEVER GRIFFIN'S DAUGHTER, THE PTS NIECE, STAYS WITH HER AT TIMES AND PLANS TO BE THERE WHEN PT RETURNS HOME. SHE REPORT SHE DAUGHTER IS A SOON TO BE LICENSED PA SO THE PT WILL BE IN GOOD HANDS. SHE REPORTS THE PT IS FULLY INDEPENDENT AND USES NO DME. PT WORKS AND DRIVES. PER PREVIOUS RECORDS, GRIFFIN IS PTS HCP HOWEVER THERE IS NO COPY ON FILE. COPY REQUESTED. PT WILL BE TRANSFERRING TO ANOTHER ACUTE CARE FACILITY ONCE A BED IS SECURED VIA BLS
[2021-01-22 16:45] LABS: Erythrocyte Sedimentation Rate 38 MM/HR (0-20)
[2021-01-22] MEDS: cefTRIAXone sodium 2 GM in 0.9 % Sodium Chloride 50 ML IV (16:47)
[2021-01-22] MEDS: metroNIDAZOLE/NS 500 MG/100 ML PIGGYBACK 100 MG IV (17:48)
[2021-01-22 19:39] VITALS: BP 150/80; PULSE 90; RESP 18; TEMP 36.6; O2SAT 97
[2021-01-23] VITALS (7 sets, daily range): BP systolic 121–154; BP diastolic 67–86; PULSE 61–77; RESP 16–20; TEMP 36.3–37.2; O2SAT 94–98
[2021-01-23] MEDS: 0.9 % Sodium Chloride Flush 3 ML SYRINGE IVFLUSH ×3 (00:49→16:27)
[2021-01-23] MEDS: metroNIDAZOLE/NS 500 MG/100 ML PIGGYBACK 100 MG IV ×3 (00:49→16:27)
[2021-01-23 00:56] LABS: Lyme Abs Screen <0.90 index
[2021-01-23] MEDS: cefTRIAXone sodium 2 GM in 0.9 % Sodium Chloride 50 ML IV ×2 (04:08→15:47)
[2021-01-23] MEDS: PARoxetine HCL 10 MG TABLET PO (08:20)
[2021-01-23] MEDS: Levothyroxine Sodium 125 MCG TABLET PO (08:20)
[2021-01-23] MEDS: Montelukast Sodium 10 MG TABLET PO (08:20)
[2021-01-23 08:33] LABS: Hemoglobin 12.4 g/dl (12.0-16.0); Mean Corpuscular HGB Conc 31.8 g/dl (31.0-35.0); Mean Corpuscular Hemoglobin 27.5 pg (27.0-33.0); Mean Corpuscular Volume 86.5 fL (80-98); Mean Platelet Volume 9.4 fL (9.4-12.3); Platelet Count 262 X10*3/uL (160-400); Red Blood Count 4.51 X10*6/uL (4.20-5.50); Red Cell Distribution Width 13.8 % (11.0-16.0); White Blood Count 10.1 X10*3/uL (4.8-10.8)
[2021-01-23 08:52] LABS: Prothrombin Time 11.7 SEC (9.9-13.0)
[2021-01-23 08:59] LABS: Alanine Aminotransferase 152 U/L (0-31); Albumin Level 3.9 g/dL (3.5-5.0); Alkaline Phosphatase 89 U/L (39-117); Anion Gap 13 (12-20); Aspartate Amino Transferase 71 U/L (5-31); Bilirubin Direct 0.2 mg/dL (0.0-0.5); Bilirubin Total 0.3 mg/dL (0.0-1.0); Blood Urea Nitrogen 11 mg/dL (9-16); C Reactive Protein 3.79 mg/dL (< or = 0.50); Calcium 9.5 mg/dL (8.4-10.2); Carbon Dioxide 28 mmol/L (22-29); Chloride 106 mmol/L (96-108); Creatinine Clr Calc Pharmacy 99.7; Estimated Glomerular Filt Rate > 60; Glucose Random 87 mg/dL (60-115); Lactate Dehydrogenase 149 U/L (122-220); Potassium 3.5 mmol/L (3.3-5.1); Sodium 143 mmol/L (135-145); Total Protein 7.3 g/dL (6.5-8.0); Vancomycin Trough 7.7 mcg/mL (10.0-20.0)
[2021-01-23] MEDS: vancomycin HCL 1,250 MG in 0.9 % Sodium Chloride 250 ML 166.67 MG IV (10:39)
[2021-01-23] MEDS: oxyCODONE HCl Immed Release 5 MG TABLET PO (12:33)
--- NOTE | 2021-01-23 13:12 | HO.PM.IMPN ---
Subjective Subjective Date of Service: 01/23/21 Interval History: the patient was seen and evaluated this morning Laying in bed, feels little better still have significant decreased range of motion of the neck and mouth opening Waiting to be transferred to [facility] Denies any fever, chills or shortness of breath No reported other overnight events. Systemic review: No fever, chills but has weakness and sore throat Difficulty with range of motion at the neck No chest pain, palpitation No shortness of breath or coughing No abdominal pain, nausea or vomiting No urinary symptoms No any rash or wounds Physical Exam Vital Signs: Vital Signs: Last Vital Signs Temp 98.4 F 01/23/21 11:39 Pulse 70 01/23/21 11:39 Resp 18 01/23/21 11:39 BP 148/81 H 01/23/21 11:39 Pulse Ox 98 01/23/21 11:39 Body Mass Index 28.4 Const: Other: Constitutional : Alert, oriented, not in distress Neck : Normal inspection, tenderness over back of the neck, decreased range of motion significantly of the neck, decrease range Jaw opening but stable since yesterday Cardiovascular : RRR, S1 S2, no lower extremity edema Respiratory : Good bilateral air entry, no crackles, wheezes or rhonchi Gastrointestinal: soft, lax, Normal bowel sounds, Non tender Skin : Warm, Dry Neurological : Alert & oriented x3, No focal deficit Objective Data Current Medications Generic Name Dose Route Start Last Admin Trade Name Freq PRN Reason Stop Dose Admin Acetaminophen 650 mg 01/21/21 22:34 01/21/21 23:52 Acetaminophen 325 Mg Tablet PO 650 mg Q6H PRN Administration Pain, Mild (Pain Scale 1-3) Ceftriaxone Sodium 2 gm/ 50 mls @ 100 mls/hr 01/22/21 16:00 01/23/21 06:19 Sodium Chloride IV Infused Q12H [facility]ER Infusion Metronidazole 500 mg in 100 mls @ 100 mls/hr 01/22/21 16:00 01/23/21 09:51 Flagyl IV Infused Q8H [facility]ER Infusion Vancomycin HCl 1,250 mg/ 250 mls @ 166.667 mls/hr 01/23/21 10:00 01/23/21 12:34 Sodium Chloride IV Infused Q12H [facility]ER Infusion Levothyroxine Sodium 125 mcg 01/22/21 09:00 01/23/21 08:20 Levothyroxine Sodium 125 Mcg Tablet PO 125 mcg DAILY [facility] Administration Montelukast Sodium 10 mg 01/22/21 09:00 01/23/21 08:20 Montelukast Sodium 10 Mg Tablet PO 10 mg DAILY [facility] Administration Non-Formulary Medication 1 tab 01/22/21 09:00 Methylphenidate Hcl PO DAILY [facility] Ondansetron HCl 4 mg 01/21/21 22:34 Ondansetron Hcl 4 Mg/2 Ml Vial IVPUSH Q8H PRN Nausea and Vomiting Oxycodone HCl 5 mg 01/21/21 22:34 01/23/21 12:33 Oxycodone Hcl Immed Release 5 Mg Tablet PO 5 mg Q6H PRN Administration Pain, Severe (Pain Scale 7-10) Paroxetine HCl 10 mg 01/22/21 09:00 01/23/21 08:20 Paroxetine Hcl 10 Mg Tablet PO 10 mg DAILY [facility] Administration Pharmacy Consult 1 each 01/21/21 22:34 Consult Rx Vancomycin Dosing MISCELLANE DAILY PRN Consult order Sodium Chloride 3 ml 01/22/21 00:00 01/23/21 10:39 0.9 % Sodium Chloride Flush 3 Ml Syringe IVFLUSH 3 ml QSHIFT [facility] Administration Labs CBC & Chem 7: 01/23/21 08:20 01/23/21 08:20 Labs: Laboratory Results - last 24 hr 01/21/21 01/22/21 01/23/21 12:36 15:59 08:20 MCV 86.5 MCH 27.5 MCHC 31.8 RDW 13.8 Plt Count 262 MPV 9.4 Absolute Nucleated RBC 0.000 Nucleated RBC % (auto) 0.0 ESR 38 H PT INR Anion Gap Estim Creat Clear Calc Estimated GFR Random Glucose Calcium Total Bilirubin Direct Bilirubin AST ALT Alkaline Phosphatase Lactate Dehydrogenase C-Reactive Protein Total Protein Albumin Vancomycin Trough Lyme Screen IgG & IgM <0.90 Lyme Progressive Test TNP 01/23/21 01/23/21 01/23/21 08:20 08:20 08:20 MCV MCH MCHC RDW Plt Count MPV Absolute Nucleated RBC Nucleated RBC % (auto) ESR PT 11.7 INR 1.0 Anion Gap 13 Estim Creat Clear Calc 99.7 Estimated GFR > 60 Random Glucose 87 Calcium 9.5 Total Bilirubin 0.3 Direct Bilirubin 0.2 AST 71 H ALT 152 H Alkaline Phosphatase 89 Lactate Dehydrogenase 149 C-Reactive Protein 3.79 H Total Protein 7.3 Albumin 3.9 Vancomycin Trough 7.7 L Lyme Screen IgG & IgM Lyme Progressive Test Microbiology Microbiology Results: Microbiology 01/21/21 12:57 Blood Culture - Preliminary Blood - Venous No growth after 24 hours. 01/21/21 12:37 Blood Culture - Preliminary Blood - Venous No growth after 24 hours. Assessment and Plan (1) Abscess of neck: Status: Acute (2) Soft tissue abscess: Status: Acute Assessment and Plan: 55-year-old female who presents to the hospital with neck stiffness is admitted for evaluation of further abnormality seen on MRI # neck abscess Review MRI report with contrast, phlegmon with abscess perivertebral area C3-C5, intracranial findings CTA not showing any acute findings other some white matter attenuation Continue antibiotic of vancomycin, ceftriaxone and Flagyl Neurology input appreciated ID evaluation Plan to transfer the patient to [facility] were neurosurgery and ENT available # allergic to CT contrast Received IV contrast premedication Kidney function stable # hypothyroidism continue levothyroxine DVT prophylaxis SCDs Quality Stroke Does the patient have a stroke diagnosis?: No VTE Prior VTE?: No VTE Risk Level:: Medical - moderate - high VTE Device Contraindication: N/A - Device Ordered VTE Drug Contraindication: Treatment Not Indicated
[2021-01-23] MEDS: Acetaminophen 325 MG TABLET 650 MG PO (15:52)
[2021-01-23] MEDS: Ketorolac Tromethamine 15 MG/ML VIAL 30 MG IVPUSH (18:58)
[2021-01-23] MEDS: vancomycin HCL 1,500 MG in 0.9 % Sodium Chloride 500 ML 333.33 MG IV (22:26)
[2021-01-24] MEDS: 0.9 % Sodium Chloride Flush 3 ML SYRINGE IVFLUSH ×3 (00:10→16:21)
[2021-01-24] MEDS: metroNIDAZOLE/NS 500 MG/100 ML PIGGYBACK 100 MG IV ×2 (00:14→08:26)
[2021-01-24 03:54] VITALS: BP 127/61; PULSE 69; RESP 18; TEMP 36.8; O2SAT 99
[2021-01-24] MEDS: cefTRIAXone sodium 2 GM in 0.9 % Sodium Chloride 50 ML IV ×2 (04:10→16:20)
[2021-01-24 05:10] LABS: Hematocrit 37.9 % (37-47); Hemoglobin 12.1 g/dl (12.0-16.0); Mean Corpuscular HGB Conc 31.9 g/dl (31.0-35.0); Mean Corpuscular Hemoglobin 27.6 pg (27.0-33.0); Mean Corpuscular Volume 86.3 fL (80-98); Mean Platelet Volume 9.3 fL (9.4-12.3); Platelet Count 252 X10*3/uL (160-400); Red Blood Count 4.39 X10*6/uL (4.20-5.50); White Blood Count 6.1 X10*3/uL (4.8-10.8)
[2021-01-24 05:40] LABS: Anion Gap 11 (12-20); Blood Urea Nitrogen 12 mg/dL (9-16); Calcium 8.3 mg/dL (8.4-10.2); Carbon Dioxide 27 mmol/L (22-29); Chloride 106 mmol/L (96-108); Creatinine Clr Calc Pharmacy 112.2; Estimated Glomerular Filt Rate > 60; Glucose Random 85 mg/dL (60-115); Potassium 3.9 mmol/L (3.3-5.1); Sodium 140 mmol/L (135-145)
[2021-01-24 07:41] LABS: Syphilis Screen Nonreactive (Nonreactive)
[2021-01-24 08:00] VITALS: BP 161/84; PULSE 79; RESP 18; TEMP 36.4; O2SAT 97
[2021-01-24] MEDS: Acetaminophen 325 MG TABLET 650 MG PO ×2 (08:25→23:31)
[2021-01-24] MEDS: Montelukast Sodium 10 MG TABLET PO (08:26)
[2021-01-24] MEDS: Levothyroxine Sodium 125 MCG TABLET PO (08:26)
[2021-01-24] MEDS: PARoxetine HCL 10 MG TABLET PO (08:27)
[2021-01-24] MEDS: vancomycin HCL 1,500 MG in 0.9 % Sodium Chloride 500 ML 333.3 MG IV (10:28)
[2021-01-24 11:06] VITALS: BP 128/80; PULSE 78; RESP 18; TEMP 36.4; O2SAT 95
--- NOTE | 2021-01-24 11:09 | MHC.CM.PN ---
Per [facility]DS discussion, the goal is for a transfer to [facility], where Neurosurgery and ENT are available.
[2021-01-24 11:47] LABS: Myeloperoxidase Antibody <1.0 AI; Proteinase 3 PR3 Antibodies <1.0 AI
[2021-01-24 13:12] LABS: Complement C3 148 mg/dL (83-193)
--- NOTE | 2021-01-24 13:58 | HO.PM.IMPN ---
Subjective Subjective Date of Service: 01/24/21 Interval History: the patient was seen and evaluated this morning Laying in bed, feels some improvement today as pain decreased and she can move her neck little bit more But she still still has significant decreased range of motion of the neck and mouth opening Waiting to be transferred to [facility] Denies any fever, chills or shortness of breath No reported other overnight events. Systemic review: No fever, chills but has weakness and sore throat Difficulty with range of motion at the neck No chest pain, palpitation No shortness of breath or coughing No abdominal pain, nausea or vomiting No urinary symptoms No any rash or wounds Physical Exam Vital Signs: Vital Signs: Last Vital Signs Temp 97.6 F 01/24/21 11:06 Pulse 78 01/24/21 11:06 Resp 18 01/24/21 11:06 BP 128/80 01/24/21 11:06 Pulse Ox 95 01/24/21 11:06 Body Mass Index 28.4 Const: Other: Constitutional : Alert, oriented, not in distress Neck : Normal inspection, tenderness over back of the neck, decreased range of motion significantly of the neck but mildly improved decrease range Jaw opening but mildly improved since yesterday Cardiovascular : RRR, S1 S2, no lower extremity edema Respiratory : Good bilateral air entry, no crackles, wheezes or rhonchi Gastrointestinal: soft, lax, Normal bowel sounds, Non tender Skin : Warm, Dry Neurological : Alert & oriented x3, No focal deficit Objective Data Current Medications Generic Name Dose Route Start Last Admin Trade Name Freq PRN Reason Stop Dose Admin Acetaminophen 650 mg 01/21/21 22:34 01/24/21 08:25 Acetaminophen 325 Mg Tablet PO 650 mg Q6H PRN Administration Pain, Mild (Pain Scale 1-3) Ceftriaxone Sodium 2 gm/ 50 mls @ 100 mls/hr 01/22/21 16:00 01/24/21 05:02 Sodium Chloride IV Infused Q12H [facility] Infusion Metronidazole 500 mg in 100 mls @ 100 mls/hr 01/22/21 16:00 01/24/21 09:49 Flagyl IV Infused Q8H [facility] Infusion Vancomycin HCl 1,500 mg/ 500 mls @ 333.333 mls/hr 01/23/21 22:00 01/24/21 12:08 Sodium Chloride IV Infused Q12H [facility] Infusion Levothyroxine Sodium 125 mcg 01/22/21 09:00 01/24/21 08:26 Levothyroxine Sodium 125 Mcg Tablet PO 125 mcg DAILY [facility] Administration Montelukast Sodium 10 mg 01/22/21 09:00 01/24/21 08:26 Montelukast Sodium 10 Mg Tablet PO 10 mg DAILY [facility] Administration Non-Formulary Medication 1 tab 01/22/21 09:00 Methylphenidate Hcl PO DAILY [facility] Ondansetron HCl 4 mg 01/21/21 22:34 Ondansetron Hcl 4 Mg/2 Ml Vial IVPUSH Q8H PRN Nausea and Vomiting Oxycodone HCl 5 mg 01/21/21 22:34 01/23/21 12:33 Oxycodone Hcl Immed Release 5 Mg Tablet PO 5 mg Q6H PRN Administration Pain, Severe (Pain Scale 7-10) Paroxetine HCl 10 mg 01/22/21 09:00 01/24/21 08:27 Paroxetine Hcl 10 Mg Tablet PO 10 mg DAILY [facility] Administration Pharmacy Consult 1 each 01/21/21 22:34 Consult Rx Vancomycin Dosing MISCELLANE DAILY PRN Consult order Sodium Chloride 3 ml 01/22/21 00:00 01/24/21 08:27 0.9 % Sodium Chloride Flush 3 Ml Syringe IVFLUSH 3 ml QSHIFT [facility] Administration Labs CBC & Chem 7: 01/24/21 04:36 01/24/21 04:36 Labs: Laboratory Results - last 24 hr 01/21/21 01/22/21 01/24/21 23:22 15:59 04:36 MCV 86.3 MCH 27.6 MCHC 31.9 RDW 14.0 Plt Count 252 MPV 9.3 L Absolute Nucleated RBC 0.000 Nucleated RBC % (auto) 0.0 Anion Gap Estim Creat Clear Calc Estimated GFR Random Glucose Calcium Proteinase 3 (PR3) Ab <1.0 Myeloperoxidase Ab <1.0 Complement C3 148 Complement C4 30 T.pallidum Ab (EIA) Nonreactive 01/24/21 04:36 MCV MCH MCHC RDW Plt Count MPV Absolute Nucleated RBC Nucleated RBC % (auto) Anion Gap 11 L Estim Creat Clear Calc 112.2 Estimated GFR > 60 Random Glucose 85 Calcium 8.3 L D Proteinase 3 (PR3) Ab Myeloperoxidase Ab Complement C3 Complement C4 T.pallidum Ab (EIA) Microbiology Microbiology Results: Microbiology 01/21/21 12:57 Blood Culture - Preliminary Blood - Venous No growth after 48 hours. 01/21/21 12:37 Blood Culture - Preliminary Blood - Venous No growth after 48 hours. Assessment and Plan (1) Abscess of neck: Status: Acute (2) Soft tissue abscess: Status: Acute Assessment and Plan: 55-year-old female who presents to the hospital with neck stiffness is admitted for evaluation of further abnormality seen on MRI # neck abscess Review MRI report with contrast, phlegmon with abscess perivertebral area C3-C5, intracranial findings CTA not showing any acute findings other some white matter attenuation Continue antibiotic of vancomycin, ceftriaxone and Flagyl Neurology input appreciated ID evaluation Plan to transfer the patient to [facility] were neurosurgery and ENT available # allergic to CT contrast Received IV contrast premedication Kidney function stable # hypothyroidism continue levothyroxine DVT prophylaxis SCDs Quality Stroke Does the patient have a stroke diagnosis?: No VTE Prior VTE?: No VTE Risk Level:: Medical - moderate - high VTE Device Contraindication: N/A - Device Ordered VTE Drug Contraindication: Treatment Not Indicated
[2021-01-24 14:17] LABS: Cardiolipin IgM Ab <2.0 MPL-U/mL
[2021-01-24 15:44] VITALS: BP 156/84; PULSE 66; RESP 18; TEMP 36.7; O2SAT 99
--- NOTE | 2021-01-24 15:51 | W.PM.IDCN ---
History of Present Illness Data of Consult Service Date: 01/24/21 Requesting physician: Eryn Salguero Primary Care Provider: Toney Payne MD HPI Reason for consult: cervical neck abscess She presents to hospital with neck stiffness for a day She has no fever or chills or injuries MRI C spine shows C1-C2 septic arthritis and abscess She has no other symptoms Review of Systems Review of Systems: Yes all other systems are reviewed and are negative PMFSH Past Medical History Medical History ADD (attention deficit disorder) Allergy Asthma Hypothyroidism Social History Social History Household Members: None Housing: Apartment Do you presently have visiting nurse or other home services: No Alcohol intake: current Alcohol intake frequency: holidays/special occasions only Patient Tobacco Use Status: Never used Tobacco Smoked in Last 30 Days: No Second Hand Smoke Exposure: No Use of substances other than those prescribed or required for medical reasons: No Currently Displaying Signs/Symptoms of Drug Intoxication Withdrawal: No Any prior treatment program specific to substance use: No Have you been hit, kicked, punched, or otherwise hurt by someone within the past year? If so, by whom?: No Do you feel safe in your current relationship?: No Current Relationship Is there a partner from a previous relationship who is making you feel unsafe now?: No Are you made to feel afraid or neglected: No Advance Directives: No Advance Directives Information Provided: Yes Advance Directives on File: Yes Advance Directives Date on File: 01/22/21 Do you have thoughts of harming others: None Do you have a plan to hurt others: No Plan Recently lost weight without trying: Unsure Eating poorly because of decreased appetite: No Nutrition Risks: No Nutritional Risk Patient : No : No Poor oral hygiene: No service: No Current occupational status: employed Meds Allergies Allergy/AdvReac Type Severity Reaction Status Date / Time bee pollen [BEE STINGS] Allergy Unknown SOB, Verified 01/21/21 11:22 SWELLING Iodinated Contrast Media Allergy Unknown UNKNOWN Verified 01/21/21 11:22 [CONTRAST, IV] Active Medications: Current Medications Generic Name Dose Route Start Last Admin Trade Name Freq PRN Reason Stop Dose Admin Acetaminophen 650 mg 01/21/21 22:34 01/24/21 08:25 Acetaminophen 325 Mg Tablet PO 650 mg Q6H PRN Administration Pain, Mild (Pain Scale 1-3) Ceftriaxone Sodium 2 gm/ 50 mls @ 100 mls/hr 01/22/21 16:00 01/24/21 05:02 Sodium Chloride IV Infused Q12H [facility] Infusion Metronidazole 500 mg in 100 mls @ 100 mls/hr 01/22/21 16:00 01/24/21 09:49 Flagyl IV Infused Q8H [facility] Infusion Vancomycin HCl 1,500 mg/ 500 mls @ 333.333 mls/hr 01/23/21 22:00 01/24/21 12:08 Sodium Chloride IV Infused Q12H [facility] Infusion Levothyroxine Sodium 125 mcg 01/22/21 09:00 01/24/21 08:26 Levothyroxine Sodium 125 Mcg Tablet PO 125 mcg DAILY [facility] Administration Montelukast Sodium 10 mg 01/22/21 09:00 01/24/21 08:26 Montelukast Sodium 10 Mg Tablet PO 10 mg DAILY [facility] Administration Non-Formulary Medication 1 tab 01/22/21 09:00 Methylphenidate Hcl PO DAILY [facility] Ondansetron HCl 4 mg 01/21/21 22:34 Ondansetron Hcl 4 Mg/2 Ml Vial IVPUSH Q8H PRN Nausea and Vomiting Oxycodone HCl 5 mg 01/21/21 22:34 01/23/21 12:33 Oxycodone Hcl Immed Release 5 Mg Tablet PO 5 mg Q6H PRN Administration Pain, Severe (Pain Scale 7-10) Paroxetine HCl 10 mg 01/22/21 09:00 01/24/21 08:27 Paroxetine Hcl 10 Mg Tablet PO 10 mg DAILY [facility] Administration Pharmacy Consult 1 each 01/21/21 22:34 Consult Rx Vancomycin Dosing MISCELLANE DAILY PRN Consult order Sodium Chloride 3 ml 01/22/21 00:00 01/24/21 08:27 0.9 % Sodium Chloride Flush 3 Ml Syringe IVFLUSH 3 ml QSHIFT [facility] Administration Home Medications Medication Instructions Recorded Confirmed Last Taken Type aspirin 81 mg tablet 81 mg PO DAILY 01/21/21 01/21/21 Unknown History levothyroxine 125 mcg tablet 1 tab PO DAILY 01/21/21 01/21/21 Unknown History methylphenidate HCl 54 mg 1 tab PO QAM 01/21/21 01/21/21 Unknown History tablet,extended release 24 hr montelukast 10 mg tablet 1 tab PO DAILY 01/21/21 01/21/21 Unknown History paroxetine HCl 10 mg tablet 1 tab PO DAILY 01/21/21 01/21/21 Unknown History Physical Exam Vital Signs: Vital Signs: Last Vital Signs Temp 98.1 F 01/24/21 15:44 Pulse 66 01/24/21 15:44 Resp 18 01/24/21 15:44 BP 156/84 H 01/24/21 15:44 Pulse Ox 99 01/24/21 15:44 Body Mass Index 28.4 Const: General: cooperative HENMT: Head: Yes normal to inspection Face and sinus: Yes normal facial exam Mouth: Normal oral and palatal mucosa present Eyes: General: appearance normal, both eyes and all related structures Resp: Effort & Inspection: normal respiratory effort Cardio: Rate: regular rate Rhythm: regular rhythm GI: Palpation (GI): Soft to palpation and nontender Back/Spine/Pelvis: Other: pain and stiffness c spine,decreased ROM Results Labs CBC & Chem 7: 01/24/21 04:36 01/24/21 04:36 Labs: Short CBC 01/24/21 Range/Units 04:36 WBC 6.1 (4.8-10.8) X10*3/uL Hgb 12.1 (12.0-16.0) g/dl Hct 37.9 (37-47) % Plt Count 252 (160-400) X10*3/uL BMP 01/24/21 04:36 Sodium 140 Potassium 3.9 Chloride 106 Carbon Dioxide 27 BUN 12 Creatinine 0.64 Calcium 8.3 L D Microbiology Microbiology Results: Microbiology 01/21/21 12:57 Blood - Venous Blood Culture - Preliminary No growth after 48 hours. 01/21/21 12:37 Blood - Venous Blood Culture - Preliminary No growth after 48 hours. Assessment and Plan (1) Abscess of neck: Status: Acute Concern over staph,strep ? metastic event from endocarditis (2) Soft tissue abscess: Status: Acute IR aspirate if able If not 6 weeks IV Vancomycin and Ceftriaxone Stop Flagyl,no brain abscess Check TTE endocarditis
[2021-01-24 19:11] VITALS: BP 147/90; PULSE 85; RESP 18; TEMP 36.7; O2SAT 96
[2021-01-24 22:47] LABS: Vancomycin Trough 13.6 mcg/mL (10.0-20.0)
[2021-01-24 23:33] LABS: Anti Nuclear Antibody Screen NEGATIVE (NEGATIVE)
== END 2021-01-24 23:30 | disposition short-term general hospital (02) | DRG 96 ==
LOC: HO.ED 19:31 → HO.EDOVER 23:10 → HO.IMC 23:18
PROVIDERS: Physician Assistant; Admitting Provider Internal Medicine; Emergency Provider Emergency Medicine; PCP Internal Medicine; Visit Provider Student in an Organized Health Care Education/Training Program
DX: G06.1 Intraspinal abscess and granuloma (principal); E03.9 Hypothyroidism, unspecified; F98.8 Other specified behavioral and emotional disorders with onset usually occurring in childhood and adolescence; Z20.822 Contact with and (suspected) exposure to COVID-19; Z79.82 Long term (current) use of aspirin; Z79.890 Hormone replacement therapy; Z79.899 Other long term (current) drug therapy
CPT/HCPCS: 0241U; 36415; 70450; 70496; 70498; 70551; 70552; 72141; 72142; 80048; 80076; 80202; 81003; 82550; 83605; 83615; 83735; 85025; 85027; 85610; 85652; 86021; 86038; 86039; 86140; 86147; 86160; 86617; 86618; 86780; 87040; 87651; 96361; 96365; 96375; 99285; A9585; J0133; J0295; J0692; J0696; J1885; J2060; J2270; J3370; Q0163; Q9967